=== PATIENT | female | born 1950 | race African-American/Black ===

== ENCOUNTER 2016-12-27 23:50 | Emergency (ER) | payer OTHER ==
[~2016-12-27] VITALS: Ht 154.9 cm; Wt 68.0 kg
[2016-12-28 00:18] LABS: MCH 29.6 PG (29.0-34.0); MEAN PLAT.VOLUME 9.5 uM^3 (9.5-12.4); PLATELET COUNT 258 K/uL (156-360); RBC DIS.WIDTH-SD 38.4 % (39-53); RED BLOOD COUNT 4.94 M/uL (3.80-5.20); WHITE BLOOD COUNT 7.8 K/uL (4.1-10.2)
[2016-12-28 00:20] LABS: CHLORIDE 107 mEq/L (99-109); POTASSIUM 3.8 mEq/L (3.7-5.4); SODIUM 138 mEq/L (136-147)
[2016-12-28 00:22] LABS: GLUCOSE 201 mg/dL (70-99)
[2016-12-28 00:23] LABS: ANION GAP 10 MEQ/L (2-14)
[2016-12-28 00:26] LABS: GFR ESTIMATE (CALCULATED) > 59 mL/min/; UREA NITROGEN (BUN) 12 mg/dL (9-23)
[2016-12-28 00:33] LABS: TROP-I INTERPRETATION NEGATIVE; TROPONIN-I < 0.01 ng/mL (0.0-0.30)
[2016-12-28 01:37] VITALS: BP 152/96
== END 2016-12-28 01:41 | disposition home or self-care (01) ==
LOC: EME → EDBD 23:50 → EME 23:50
DX: I10 Essential (primary) hypertension (principal)
CPT/HCPCS: 71020; 80048; 84484; 85027; 93005; 99281; 99284

== ENCOUNTER → 2017-10-09 | Outpatient (CLI) | payer BC, MEDICARE | END | disposition home or self-care (01) | LOC: CDC 09:47 | DX: M25.531 Pain in right wrist (principal); M25.532 Pain in left wrist; G56.03 Carpal tunnel syndrome, bilateral upper limbs; M18.0 Bilateral primary osteoarthritis of first carpometacarpal joints | CPT/HCPCS: 93000 ==